=== PATIENT | female | born 1975 | race Caucasian/White ===

== ENCOUNTER 2017-11-22 20:17 | Emergency (ER) | payer SELFPAY ==
--- NOTE | 2017-11-22 21:47 | RAD REPORT ---
EXAM DESCRIPTION: RAD - Wrist Left 3 View - 11/22/2017 9:37 pm CLINICAL HISTORY: PAIN Fall COMPARISON: No comparisons FINDINGS: Small avulsion fracture of the triquetrum is suspected with adjacent moderate soft tissue swelling. No additional fracture or dislocation seen.
--- NOTE | 2017-11-22 22:16 | EDPHYS ---
Physician Documentation [facility] Name: Paz Ontiveros Age: 42 yrs Sex: Female : 1975 Arrival Date: 11/22/2017 Time: 20:19 Bed 12 Private MD: ED Physician Will Guillory HPI: 11/22 22:05 This 42 yrs old Female presents to ER via Ambulatory with complaints of Wrist jr8 Injury. 22:05 The patient or guardian reports decreased range of motion, pain, swelling, tenderness. jr8 The complaints affect the left wrist diffusely. Context: The problem was sustained outdoors, resulted from a fall. Onset: The symptoms/episode began/occurred acutely, today. Modifying factors: The symptoms are alleviated by nothing, the symptoms are aggravated by movement. Associated signs and symptoms: The patient has no apparent associated signs or symptoms. The patient has not experienced similar symptoms in the past. The patient has not recently seen a physician. 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 - Social history:: Smoking status: Patient uses tobacco products, smokes one pack cigarettes per day. - Ebola Screening: : No symptoms or risks identified at this time. ROS: 22:05 Eyes: Negative for injury, pain, redness, and discharge, ENT: Negative for injury, jr8 pain, and discharge, Neck: Negative for injury, pain, and swelling, Cardiovascular: Negative for chest pain, palpitations, and edema, Respiratory: Negative for shortness of breath, cough, wheezing, and pleuritic chest pain, Abdomen/GI: Negative for abdominal pain, nausea, vomiting, diarrhea, and constipation, Back: Negative for injury and pain, Skin: Negative for injury, rash, and discoloration, Neuro: Negative for headache, weakness, numbness, tingling, and seizure. 22:05 MS/extremity: Positive for decreased range of motion, pain, swelling, tenderness, of the left wrist. Exam: 22:05 Cardiovascular: Regular rate and rhythm with a normal S1 and S2. No gallops, murmurs, jr8 or rubs. Normal PMI, no JVD. No pulse deficits. Respiratory: Lungs have equal breath sounds bilaterally, clear to auscultation and percussion. No rales, rhonchi or wheezes noted. No increased work of breathing, no retractions or nasal flaring. Skin: Warm, dry with normal turgor. Normal color with no rashes, no lesions, and no evidence of cellulitis. Neuro: Awake and alert, GCS 15, oriented to person, place, time, and situation. Cranial nerves II-XII grossly intact. Motor strength 5/5 in all extremities. Sensory grossly intact. Cerebellar exam normal. Normal gait. 22:05 Musculoskeletal/extremity: Extremities: grossly normal except: noted in the left wrist : decreased ROM, pain, swelling, tenderness, Pain to dorsal left wrist and ventral left wrist over pisiform region, ROM: limited active range of motion, limited passive range of motion, limited active range of motion due to pain, limited passive range of motion due to pain, Circulation is intact in all extremities. Sensation intact. Vital Signs: 20:50 BP 102 / 75; Pulse 85; Resp 16; Temp 98.2(TE); Pulse Ox 99% on R/A; Weight 41.73 kg lk1 (R); Height 5 ft. 0 in. (152.40 cm) (R); Pain 8/10; 22:45 BP 106 / 53; Pulse 78; Resp 18; Pulse Ox 98% on R/A; Pain 7/10; fu 20:50 Body Mass Index 17.97 (41.73 kg, 152.40 cm) lk1 Procedures: 22:14 Splinting: Splint applied to left wrist using Orthoglass splint, applied by tech. jr8 Examined by me, post splint application: neurovascular intact, 2+ distal pulses palpable, brisk capillary refill noted. MDM: 21:09 Patient medically screened. jr8 22:05 Data reviewed: vital signs, nurses notes, radiologic studies, plain films, and as a jr8 result, I will discharge patient. Data interpreted: Pulse oximetry: on room air is 99 %. Interpretation: normal. Counseling: I had a detailed discussion with the patient and/or guardian regarding: the historical points, exam findings, and any diagnostic results supporting the discharge/admit diagnosis, radiology results, the need for outpatient follow up, a orthopedic surgeon, to return to the emergency department if symptoms worsen or persist or if there are any questions or concerns that arise at home. 11/22 21:17 Order name: KACEY Wrist LEFT 3 view; Complete Time: 21:48 jr8 Administered Medications: 22:50 Drug: morphine 4 mg Route: IM; Site: right deltoid; fu 22:50 Drug: Zofran 4 mg Route: PO; fu Disposition: 11/23 08:07 Co-signature as Attending Physician, Will Guillory MD I agree with the assessment and wa plan of care. Disposition: 11/22/17 22:15 Discharged to Home. Impression: Fracture of triquetrum [cuneiform] bone of wrist. - Condition is Stable. - Discharge Instructions: Wrist Fracture. - Prescriptions for pentazocine- naloxone 50-0.5 mg Oral tablet - take 2 tablet by ORAL route every 3-4 hours not to exceed 12 tablets in 24 hours.; 20 tablet. - Medication Reconciliation Form, Thank You Letter, Antibiotic Education, Prescription Opioid Use form. - Follow up: Jacinto Jeffery MD; When: 2 - 3 days; Reason: Recheck today's complaints, Continuance of care, Re-evaluation by your physician. - Problem is new. - Symptoms have improved. Signatures: Dispatcher [employer] EDMN Mitesh Pearson PA PA jr8 Court Jarquin RN RN lk1 Will Guillory MD MD hi Dawit Lindsey RN RN fu Corrections: (The following items were deleted from the chart) 11/22 21:28 20:53 Forearm Left+RAD.RAD.BRZ ordered. [facility] 23:32 22:15 11/22/2017 22:15 Discharged to Home. Impression: Fracture of triquetrum fu [cuneiform] bone of wrist. Condition is Stable. Discharge Instructions: Wrist Fracture. Prescriptions for pentazocine-naloxone 50-0.5 mg Oral tablet - take 2 tablet by ORAL route every 3-4 hours not to exceed 12 tablets in 24 hours.; 20 tablet. and Forms are Medication Reconciliation Form, Thank You Letter, Antibiotic Education, Prescription Opioid Use. Follow up: Jacinto Jeffery; When: 2 - 3 days; Reason: Recheck today's complaints, Continuance of care, Re-evaluation by your physician. Problem is new. Symptoms have improved. jr8
--- NOTE | 2017-11-22 22:16 | ER ---
Nurse's Notes [facility] Name: Paz Ontiveros Age: 42 yrs Sex: Female : 1975 Arrival Date: 11/22/2017 Time: 20:19 Bed 12 Private MD: Diagnosis: Fracture of triquetrum [cuneiform] bone of wrist Presentation: 11/22 20:47 Presenting complaint: Patient states: "I was cleaning at work last night and I fell and lk1 caught myself on my left wrist. I am having a lot of throbbing.". Transition of care: patient was not received from another setting of care. Onset of symptoms was November 21, 2017 at 21:00. Risk Assessment: Do you want to hurt yourself or someone else? Patient reports no desire to harm self or others. Initial Sepsis Screen: Does the patient meet any 2 criteria? No. Patient's initial sepsis screen is negative. Does the patient have a suspected source of infection? No. Patient's initial sepsis screen is negative. Care prior to arrival: None. 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 - Social history:: Smoking status: Patient uses tobacco products, smokes one pack cigarettes per day. - Ebola Screening: : No symptoms or risks identified at this time. Assessment: 22:15 General: Appears in no apparent distress. Behavior is calm, cooperative. Pain: fu Complains of pain in left arm Pain does not radiate. Musculoskeletal: Range of motion: limited in left wrist. Vital Signs: 20:50 BP 102 / 75; Pulse 85; Resp 16; Temp 98.2(TE); Pulse Ox 99% on R/A; Weight 41.73 kg lk1 (R); Height 5 ft. 0 in. (152.40 cm) (R); Pain 8/10; 22:45 BP 106 / 53; Pulse 78; Resp 18; Pulse Ox 98% on R/A; Pain 7/10; fu 20:50 Body Mass Index 17.97 (41.73 kg, 152.40 cm) lk1 ED Course: 20:19 Patient arrived in ED. am2 20:49 Triage completed. lk1 20:52 Arm band placed on right wrist. lk1 21:09 Mitesh Pearson PA is PHCP. jr8 21:09 Will Guillory MD is Attending Physician. jr8 21:28 X-ray completed. Portable x-ray completed in exam room. Patient tolerated procedure bb2 well. 21:29 XRAY Wrist LEFT 3 view In Process Unspecified. EDMS 21:34 Dawit Lindsey, RN is Primary Nurse. fu 22:15 Jacinto Jeffery MD is Referral Physician. jr8 22:16 Orthoglass splint: Volar splint applied on left arm. ks6 22:16 Used 3 inch orthoglass and lurdes wrap x2. CMS intact. ks6 22:45 Patient did not have IV access during this emergency room visit. fu 22:50 Patient has correct armband on for positive identification. fu Administered Medications: 22:50 Drug: morphine 4 mg Route: IM; Site: right deltoid; fu 22:50 Drug: Zofran 4 mg Route: PO; fu Outcome: 22:15 Discharge ordered by . jr8 23:00 Discharged to home ambulatory, with significant other. fu 23:00 Condition: improved 23:00 Discharge instructions given to patient, Instructed on discharge instructions, follow up and referral plans. Demonstrated understanding of Prescriptions given X 1. 23:32 Patient left the ED. fu Signatures: Dispatcher [employer] EDNH Mitesh Pearson PA PA jr8 Court Jarquin RN RN lk1 Oly Alonso am2 Dawit Lindsey, RN RN Vicki Young 2 Hamzah Oconnor ks6 Corrections: (The following items were deleted from the chart) 22:17 22:16 Used 3 inch orthoglass and lurdes wrap x2 ks6 ks6
[2017-11-22] MEDS ORDERED: MORPHINE 4 MG/ML SYR ONE (22:49)
[2017-11-22] MEDS ORDERED: ONDANSETRON 4 MG (ODT) TAB ONE (22:49)
[2017-11-23 00:29] VITALS: BP 106/53; O2SAT 98
[2017-11-23 00:30] VITALS: TEMP 98.2
== END 2017-11-22 23:32 | disposition home or self-care (01) ==
LOC: ER 20:17
PROC: 2W3DX1Z Immobilization of Left Lower Arm using Splint (ICD-10-PCS; principal; 2017-11-22)
DX: S62.112A Displaced fracture of triquetrum [cuneiform] bone, left wrist, initial encounter for closed fracture (principal); Z88.5 Allergy status to narcotic agent; F17.210 Nicotine dependence, cigarettes, uncomplicated; W19.XXXA Unspecified fall, initial encounter; Y93.9 Activity, unspecified; Y92.89 Other specified places as the place of occurrence of the external cause
CPT/HCPCS: 96372; 99284

== ENCOUNTER 2017-11-23 10:55 | Emergency (ER) | payer SELFPAY ==
--- NOTE | 2017-11-23 11:24 | ER ---
Nurse's Notes [facility] Name: Paz Ontiveros Age: 42 yrs Sex: Female : 1975 Arrival Date: 11/23/2017 Time: 10:58 Bed 20 Private MD: Out, [facility] Diagnosis: Encounter for screening, unspecified Presentation: 11/23 11:08 Presenting complaint: Patient states: diagnosed in ER yesterday evening with wrist ss fracture. Pt is back today because the pain is worse and she feels as if it swollen. Pt did not fill her prescription from yesterday. Transition of care: patient was not received from another setting of care. Onset of symptoms was November 22, 2017. Risk Assessment: Do you want to hurt yourself or someone else? Patient reports no desire to harm self or others. Initial Sepsis Screen: Does the patient meet any 2 criteria? No. Patient's initial sepsis screen is negative. Does the patient have a suspected source of infection? No. Patient's initial sepsis screen is negative. Care prior to arrival: None. 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 - Social history:: Smoking status: Patient uses tobacco products, smokes one pack cigarettes per day. - Ebola Screening: : Patient denies exposure to infectious person Patient denies travel to an Ebola-affected area in the 21 days before illness onset. Screenin:44 Abuse screen: Denies threats or abuse. Nutritional screening: No deficits noted. em Tuberculosis screening: No symptoms or risk factors identified. Fall Risk None identified. Assessment: 11:30 General: Appears uncomfortable, Behavior is cooperative, anxious. Pain: Complains of em pain in left arm Quality of pain is described as. Neuro: Level of Consciousness is awake, alert, obeys commands, Oriented to person, place, time, situation. Cardiovascular: Capillary refill < 3 seconds Patient's skin is warm and dry. Respiratory: Airway is patent Respiratory effort is even, unlabored, Respiratory pattern is regular, symmetrical. GI: Abdomen is flat. : No signs and/or symptoms were reported regarding the genitourinary system. EENT: No signs and/or symptoms were reported regarding the EENT system. Derm: Skin is intact. Musculoskeletal: Circulation, motion, and sensation intact. Capillary refill < 3 seconds, Range of motion: limited in left wrist splint noted to the left arm Reports "feels swollen" pain which is 8/10. 11:40 Reassessment: pt up for discharge, awaiting shot time per hospital policy. em Vital Signs: 11:10 BP 110 / 57; Pulse 84; Resp 16; Temp 98.2(TE); Pulse Ox 99% on R/A; Weight 41.73 kg; ss Height 5 ft. 0 in. (152.40 cm); Pain 8/10; 11:59 BP 104 / 57; Pulse 61; Resp 18; Pulse Ox 99% on R/A; Pain 7/10; em 11:10 Body Mass Index 17.97 (41.73 kg, 152.40 cm) ss ED Course: 10:58 Patient arrived in ED. sb2 10:58 Out, Town is Private Physician. sb2 11:09 Triage completed. ss 11:10 Arm band placed on right wrist. ss 11:11 Cecilia Thibodeaux FNP-C is [facility]. snw 11:11 Yoan Briceño MD is Attending Physician. snw 11:21 Karl Mcleod LVN is Primary Nurse. em 11:30 Patient has correct armband on for positive identification. Bed in low position. Call em light in reach. Side rails up X2. Adult w/ patient. 11:57 No provider procedures requiring assistance completed. Patient did not have IV access em during this emergency room visit. Administered Medications: 11:40 Drug: TORadol 60 mg {Note: pt request to be given 2 shots, 30 mg administered in left em deltoid; 30 mg administered in right deltoid.} Route: IM; Site: left deltoid; 11:59 Follow up: Response: No adverse reaction em Outcome: 11:23 Discharge ordered by . snw 11:58 Discharged to home ambulatory. em 11:58 Condition: good 11:58 Discharge instructions given to patient, family, Instructed on discharge instructions, follow up and referral plans. Demonstrated understanding of instructions, follow-up care. 12:00 Patient left the ED. em Signatures: Cecilia Thibodeaux, PSYCHOLOGY INTERN-C PSYCHOLOGY INTERN-Csnw Karl Mcleod, TENNIS DESK TEAM MEMBER TENNIS DESK TEAM MEMBER em Ayse Lorenz, NUPUR RN Coco Mallory sb2
--- NOTE | 2017-11-23 11:24 | EDPHYS ---
Physician Documentation [facility] Name: Paz Ontiveros Age: 42 yrs Sex: Female : 1975 Arrival Date: 11/23/2017 Time: 10:58 Bed 20 Private MD: Out, [facility] ED Physician Yoan Briceño HPI: 11/23 11:27 This 42 yrs old Female presents to ER via Ambulatory with complaints of Pain snw And Swelling From Broken Wrist. 11:27 Onset: The symptoms/episode began/occurred and became persistent. Associated signs and snw symptoms: Pertinent positives: pain and swelling to wrist. dx with fx last pm. Pt has not gotten prescriptions written last pm. . It is unknown whether or not the patient has had similar symptoms in the past. The patient has been recently seen by a physician: The patient has been recently seen at the [facility] Emergency Department, yesterday, for similar complaints X-rays were performed, was given a prescription for pain medications. DIRECTOR ON AIR: 11:56 LMP N/A - control method em Historical: - Allergies: 11:10 Codeine; ss - Home Meds: 11:10 xanax [Active]; ambien [Active]; ss - PMHx: 11:10 Anxiety; insomonia; Panic Attacks; ss - PSHx: 11:10 Tonsillectomy; Adenoids; Tubal ligation; ss - Immunization history:: Adult Immunizations up to date. - Social history:: Smoking status: Patient uses tobacco products, smokes one pack cigarettes per day. - Ebola Screening: : Patient denies exposure to infectious person Patient denies travel to an Ebola-affected area in the 21 days before illness onset. ROS: 11:27 Constitutional: Negative for fever, chills, and weight loss, Eyes: Negative for injury, snw pain, redness, and discharge, ENT: Negative for injury, pain, and discharge, Neck: Negative for injury, pain, and swelling, Cardiovascular: Negative for chest pain, palpitations, and edema, Respiratory: Negative for shortness of breath, cough, wheezing, and pleuritic chest pain, Abdomen/GI: Negative for abdominal pain, nausea, vomiting, diarrhea, and constipation, Back: Negative for injury and pain, : Negative for injury, bleeding, discharge, and swelling, Skin: Negative for injury, rash, and discoloration, Neuro: Negative for headache, weakness, numbness, tingling, and seizure. 11:27 MS/extremity: Positive for injury or acute deformity, pain, swelling, of the left upper extremity below the elbow. Exam: 11:25 Constitutional: This is a well developed, well nourished patient who is awake, alert, snw and in no acute distress. Head/Face: Normocephalic, atraumatic. Eyes: Pupils equal round and reactive to light, extra-ocular motions intact. Lids and lashes normal. Conjunctiva and sclera are non-icteric and not injected. Cornea within normal limits. Periorbital areas with no swelling, redness, or edema. ENT: Nares patent. No nasal discharge, no septal abnormalities noted. Tympanic membranes are normal and external auditory canals are clear. Oropharynx with no redness, swelling, or masses, exudates, or evidence of obstruction, uvula midline. Mucous membranes moist. Neck: Trachea midline, no thyromegaly or masses palpated, and no cervical lymphadenopathy. Supple, full range of motion without nuchal rigidity, or vertebral point tenderness. No Meningismus. Chest/axilla: Normal chest wall appearance and motion. Nontender with no deformity. No lesions are appreciated. Cardiovascular: Regular rate and rhythm with a normal S1 and S2. No gallops, murmurs, or rubs. Normal PMI, no JVD. No pulse deficits. Respiratory: Lungs have equal breath sounds bilaterally, clear to auscultation and percussion. No rales, rhonchi or wheezes noted. No increased work of breathing, no retractions or nasal flaring. Abdomen/GI: Soft, non-tender, with normal bowel sounds. No distension or tympany. No guarding or rebound. No evidence of tenderness throughout. Back: No spinal tenderness. No costovertebral tenderness. Full range of motion. Skin: Warm, dry with normal turgor. Normal color with no rashes, no lesions, and no evidence of cellulitis. Neuro: Awake and alert, GCS 15, oriented to person, place, time, and situation. Cranial nerves II-XII grossly intact. Motor strength 5/5 in all extremities. Sensory grossly intact. Cerebellar exam normal. Normal gait. Psych: Awake, alert, with orientation to person, place and time. Behavior, mood, and affect are within normal limits. 11:25 Musculoskeletal/extremity: Extremities: grossly normal except: noted in the left hand/wrist: swelling, tenderness, splint adjusted mildly and padded, full sensation and cap refill to fingers. Vital Signs: 11:10 BP 110 / 57; Pulse 84; Resp 16; Temp 98.2(TE); Pulse Ox 99% on R/A; Weight 41.73 kg; ss Height 5 ft. 0 in. (152.40 cm); Pain 8/10; 11:59 BP 104 / 57; Pulse 61; Resp 18; Pulse Ox 99% on R/A; Pain 7/10; em 11:10 Body Mass Index 17.97 (41.73 kg, 152.40 cm) ss MDM: 11:23 Patient medically screened. snw 11:29 Data reviewed: vital signs, nurses notes. Data interpreted: Pulse oximetry: on room air snw is 99 %. Interpretation: normal. Counseling: I had a detailed discussion with the patient and/or guardian regarding: the historical points, exam findings, and any diagnostic results supporting the discharge/admit diagnosis, the need for outpatient follow up, for definitive care, to return to the emergency department if symptoms worsen or persist or if there are any questions or concerns that arise at home. 11/23 11:16 Order name: Cammie; Complete Time: 11:59 snw Administered Medications: 11:40 Drug: TORadol 60 mg {Note: pt request to be given 2 shots, 30 mg administered in left em deltoid; 30 mg administered in right deltoid.} Route: IM; Site: left deltoid; 11:59 Follow up: Response: No adverse reaction em Disposition: 18:17 Co-signature as Attending Physician, Yoan Briceño MD. rn Disposition: 11/23/17 11:23 Discharged to Home. Impression: Encounter for screening, unspecified. - Condition is Stable. - Discharge Instructions: Elastic Bandage and RICE, Cast or Splint Care, Cryotherapy. - Medication Reconciliation Form, Thank You Letter, Antibiotic Education, Prescription Opioid Use form. - Follow up: Private Physician; Reason: Recheck today's complaints, Continuance of care, Re-evaluation by your physician. Signatures: Cecilia Thibodeaux, HIGH RISK CASE MANAGER-C HIGH RISK CASE MANAGER-Csnw Karl Mcleod, PACKAGE DRIER PACKAGE DRIER em Yoan Briceño MD MD rn Ayse Lorenz RN RN ss Corrections: (The following items were deleted from the chart) 11:24 11:11/23/2017 11:23 Discharged to Home. Impression: Encounter for screening, snw unspecified. Condition is Stable. Forms are Medication Reconciliation Form, Thank You Letter, Antibiotic Education, Prescription Opioid Use. snw 12:00 11:24 11/23/2017 11:23 Discharged to Home. Impression: Encounter for screening, em unspecified. Condition is Stable. Forms are Medication Reconciliation Form, Thank You Letter, Antibiotic Education, Prescription Opioid Use. Follow up: Private Physician; Reason: Recheck today's complaints, Continuance of care, Re-evaluation by your physician. snw
[2017-11-23] MEDS ORDERED: KETOROLAC 30 MG/ML INJ ONE (11:34)
[2017-11-23 12:04] VITALS: TEMP 98.2; O2SAT 99
[2017-11-23 12:05] VITALS: BP 104/57
== END 2017-11-23 12:00 | disposition home or self-care (01) ==
LOC: ER 10:55
DX: S62.102D Fracture of unspecified carpal bone, left wrist, subsequent encounter for fracture with routine healing (principal); F17.210 Nicotine dependence, cigarettes, uncomplicated; X58.XXXD Exposure to other specified factors, subsequent encounter; Z88.6 Allergy status to analgesic agent
CPT/HCPCS: 96372; 99283

== ENCOUNTER 2018-12-06 12:51 | Emergency (ER) | payer SELFPAY ==
--- OUTSIDE RECORDS SUMMARY | 2018-12-06 12:55 | XMS REPORT | Summary of Care ---
:1975 Author Organization [facility] [place] Address [address] [place] [address]- Encounter [facility] Carontr_felipe(FIN) [id number] Date(s): 04/26/17 - 04/27/17 [facility] [place] [address] [place] [phone] Vital Signs No data available for this section Problem List Condition Effective Dates Status Health Status Informant Insomnia1 Active Mixed anxiety and depressive disorder2 Active 1Data migrated from [employer] on 10/24/14.2Data migrated from [employer] on 10/24/14. Allergies, Adverse Reactions, Alerts Substance Reaction Severity Status codeine1 Active 1Data migrated from [employer] on 07/28/15. Originally documented as CODEINE. itchy ,insomnia,nausea Medications ALPRAZOLam 1 mg oral tablet 1 mg=1 tab, PO, BID, prn anxiety, # 60 tab, 0 Refill(s), called to pharmacy Start Date: 04/26/17 Stop Date: 04/26/18 Status: OrderedAmbien 10 mg oral tablet 10 mg=1 tab, PO, Bedtime, PRN for sleep, # 30 tab, 0 Refill(s), called to pharmacy Start Date: 04/26/17 Stop Date: 04/26/18 Status: Ordered Results No data available for this section Immunizations No data available for this section Procedures Procedure Date Related Diagnosis Body Site Bilateral tubal ligation IVF Open reversal of tubal ligation Social History Social History Type Response Smoking Status Current every day smoker; Type: Cigarettes; Exposure to Tobacco Smoke None; Cigarette Smoking Last 365 Days Yes; Reg Smoking Cessation Counseling Yes Assessment and Plan No data available for this section
--- OUTSIDE RECORDS SUMMARY | 2018-12-06 12:55 | XMS REPORT | Continuity of Care Document ---
:1975 Author Organization [employer] Care Team Providers Name Role Phone [employer] Unavailable Unavailable Problems Problem Status Onset Classification Date Comments Source Date Reported Insomnia1 Active Problem 09/08/2018 Data migrated [facility] from [employer] on 10/24/14. Mixed anxiety Active Problem 09/08/2018 Data migrated [facility] and depressive from [employer] disorder2 [employer] on 10/24/14. Medications Medication Details Route Status Patient Ordering Order Source Instructions Provider Date Alprazolam 1 1 mg=1 tab, Active 09/05/19 [facility] MG Oral PO, BID, prn 19 Medical Tablet anxiety, # Group 60 tab, 1 Refill(s), called to pharmacy Zolpidem 10 mg=1 tab, Active 02/20/20 MH tartrate 10 PO, Bedtime, 18 Medical MG Oral PRN for Group Tablet sleep, # 30 [Ambien] tab, 5 Refill(s) Alprazolam 1 1 mg=1 tab, No Longer 02/20/20 [facility] MG Oral PO, BID, prn Active 18 Medical Tablet anxiety, # Group 60 tab, 5 Refill(s) Alprazolam 1 1 mg=1 tab, Active 12/01/19 [facility] MG Oral PO, BID, prn 18 Medical Tablet anxiety, # Group 60 tab, 3 Refill(s), called to pharmacy Zolpidem 10 mg=1 tab, Active 12/01/19 MH tartrate 10 PO, Bedtime, 18 Medical MG Oral PRN for Group Tablet sleep, # 30 [Ambien] tab, 3 Refill(s), called to pharmacy Zolpidem 10 mg=1 tab, Active 07/09/19 MH tartrate 10 PO, Bedtime, 18 Medical MG Oral PRN for Group Tablet sleep, # 30 [Ambien] tab, 3 Refill(s) Alprazolam 1 1 mg=1 tab, Active 07/09/19 [facility] MG Oral PO, BID, prn 18 Medical Tablet anxiety, # Group 60 tab, 3 Refill(s) duloxetine 30 See Active 07/09/19 MH MG Enteric Instructions 18 Medical Coated , 1 Capsule Group Capsule daily 7 [Cymbalta] days, then 2 capsule daily, # 60 cap, 1 Refill(s), Pharmacy: [facility] [id number] Alprazolam 1 1 mg=1 tab, No Longer 06/20/19 [facility] MG Oral PO, BID, prn Active 18 Medical Tablet anxiety, # Group 60 tab, 0 Refill(s), called to pharmacy Zolpidem 10 mg=1 tab, No Longer 06/20/19 MH tartrate 10 PO, Bedtime, Active 18 Medical MG Oral PRN for Group Tablet sleep, # 30 [Ambien] tab, 0 Refill(s), called to pharmacy Zolpidem 10 mg=1 tab, Active 04/26/20 MH tartrate 10 PO, Bedtime, 17 Medical MG Oral PRN for Group Tablet sleep, # 30 [Ambien] tab, 0 Refill(s), called to pharmacy Alprazolam 1 1 mg=1 tab, Active 04/26/20 [facility] MG Oral PO, BID, prn 17 Medical Tablet anxiety, # Group 60 tab, 0 Refill(s), called to pharmacy Allergies, Adverse Reactions, Alerts Substance Category Reaction Severity Reaction Status Date Comments Source type Reported codeine<sup Assertion Drug Active Data MH >1</sup> allergy migrated Medical from [facility] on 07/28/15. Originally documented as CODEINE. itchy ,insomnia,n ausea Immunizations No Data Provided for This Section Results No Data Provided for This Section Pathology Reports No Data Provided for This Section Diagnostic Reports No Data Provided for This Section Consultation Notes No Data Provided for This Section Discharge Summaries No Data Provided for This Section History and Physicals No Data Provided for This Section Vital Signs Vital Sign Value Date Comments Source BMI Calculated 18.16 02/19/2018 Medical Group Weight 42.182 02/19/2018 [facility] Group Systolic (mm Hg) 108 02/19/2018 Medical Group Diastolic (mm Hg) 71 02/19/2018 [facility] Group Height 152.4 cm 02/19/2018 Medical Group Heart Rate 85 02/19/2018 [facility] Group Temperature Oral (F) 98.0 F 02/19/2018 Medical Group Height 152.4 cm 11/07/2017 Medical Group Weight 42.182 11/07/2017 Medical Group BMI Calculated 18.16 11/07/2017 Medical Group Heart Rate 81 11/07/2017 Medical Group Temperature Oral (F) 98.2 F 11/07/2017 Medical Group Systolic (mm Hg) 96 11/07/2017 Medical Group Diastolic (mm Hg) 63 11/07/2017 Medical Group Weight 44.091 07/09/2017 Medical Group BMI Calculated 18.98 07/09/2017 Medical Group Height 152.4 cm 07/09/2017 Medical Group Systolic (mm Hg) 100 07/09/2017 Medical Group Diastolic (mm Hg) 67 07/09/2017 Medical Group Heart Rate 84 07/09/2017 Medical Group Temperature Oral (F) 97.8 F 07/09/2017 Medical Group Encounters Location Location Encounter Encounter Reason Attending ADM DC Status Source Details Type Number For Provider Date Date Visit Outpatient [id number] MARC 08/04 [facility] Outpatient [id number] MARC 02/07 [facility] [place] Outpatient [id number] MARC 03/21 [facility] [place] Outpatient [id number] MARC 06/29 [facility] Outpatient [id number] MARC 08/02 [facility] Phone [id number] 04/26 04/28 Primary Message /2016 [facility] [place] [facility] Phone [phone] 06/20 06/22 Primary Message /2017 [facility] [place] Outpatient [id number] MARC 07/09 [facility] [id number] Marc 07/09 07/10 Primary [place] /2017 [facility] [place] [facility] Phone [phone] 07/09 07/11 Primary Message /2017 [facility] [place] Outpatient [id number] MARC 11/07 [facility] [id number] Marc 11/07 11/08 Primary [place] /2017 [facility] [place] [facility] Phone [phone] 11/30 12/02 Primary Message /2017 [facility] [place] Outpatient [id number] [facility]24 [id number] 12/24 Primary [facility] [place] Outpatient [id number] 02/19 Active [facility] [id number] 02/19 [facility] [place] [facility] [phone] 09/04 09/06 Primary Message /2018 [facility] [place] Procedures Procedure Code Date Perfomer Comments Source Bilateral tubal 046947239 Medical ligation Group IVF [id number] Medical Group Open reversal of [id number] Medical tubal ligation Group Assessment and Plan No Data Provided for This Section Plan of Care No Data Provided for This Section Social History Social History Date Source Social History TypeResponse 02/19/2018 Medical Group Smoking Status Current every day smoker; Type: Cigarettes; Exposure to Tobacco Smoke None; Cigarette Smoking Last 365 Days Yes; Reg Smoking Cessation Counseling Yes entered on: 02/19/18 Family History No Data Provided for This Section Advance Directives No Data Provided for This Section Functional Status No Data Provided for This Section
--- OUTSIDE RECORDS SUMMARY | 2018-12-06 12:56 | XMS REPORT | Summary of Care ---
:1975 Author Organization [facility] [place] Address [address] [place] [address]- Encounter HQ Carontr_felipe(FIN) [id number] Date(s): 06/20/17 - 06/21/17 [facility] [place] [address] [place] [phone] Vital Signs No data available for this section Problem List Condition Effective Dates Status Health Status Informant Insomnia1 Active Mixed anxiety and depressive disorder2 Active 1Data migrated from [employer] on 10/24/14.2Data migrated from [employer] on 10/24/14. Allergies, Adverse Reactions, Alerts Substance Reaction Severity Status codeine1 Active 1Data migrated from [employer] on 07/28/15. Originally documented as CODEINE. itchy ,insomnia,nausea Medications ALPRAZOLam 1 mg oral tablet 1 mg=1 tab, PO, BID, prn anxiety, # 60 tab, 0 Refill(s), called to pharmacy Start Date: 06/20/17 Stop Date: 07/09/17 Status: DiscontinuedAmbien 10 mg oral tablet 10 mg=1 tab, PO, Bedtime, PRN for sleep, # 30 tab, 0 Refill(s), called to pharmacy Start Date: 06/20/17 Stop Date: 07/09/17 Status: Discontinued Results No data available for this section Immunizations No data available for this section Procedures Procedure Date Related Diagnosis Body Site Status Bilateral tubal ligation Completed IVF Completed Open reversal of tubal ligation Completed Social History Social History Type Response Smoking Status Current every day smoker; Type: Cigarettes; Exposure to Tobacco Smoke None; Cigarette Smoking Last 365 Days Yes; Reg Smoking Cessation Counseling Yes entered on: 07/09/17 Assessment and Plan No data available for this section
--- OUTSIDE RECORDS SUMMARY | 2018-12-06 12:56 | XMS REPORT | Summary of Care ---
:1975 Author Organization [facility] [place] Address [address] [place] [address] Encounter HQ Abdirizak(FIN) [phone] Date(s): 02/19/18 - 02/19/18 [facility] [place] [address] [place] [address]- [phone] Discharge Disposition: Home or Self Care Attending Physician: Marc Joy MD Vital Signs Most recent to oldest [Reference Range]: 1 Height 152.4 cm (02/19/18 2:06 PM) Temperature Oral [96.4-99.1 DegF] 98.0 DegF (02/19/18 2:06 PM) Blood Pressure [90-140/60-90 mmHg] 108/71 mmHg (02/19/18 2:06 PM) Peripheral Pulse Rate [60-100 bpm] 85 bpm (02/19/18 2:06 PM) Weight 42.182 kg (02/19/18 2:06 PM) Body Mass Index 18.16 m2 (02/19/18 2:06 PM) Problem List Condition Effective Dates Status Health Status Informant Insomnia1 Active Mixed anxiety and depressive disorder2 Active 1Data migrated from [employer] on 10/24/14.2Data migrated from [employer] on 10/24/14. Allergies, Adverse Reactions, Alerts Substance Reaction Severity Status codeine1 Active 1Data migrated from [employer] on 07/28/15. Originally documented as CODEINE. itchy ,insomnia,nausea Medications ALPRAZOLam 1 mg oral tablet 1 mg=1 tab, PO, BID, prn anxiety, # 60 tab, 5 Refill(s) Start Date: 02/19/18 Stop Date: 09/04/18 Status: CompletedAmbien 10 mg oral tablet 10 mg=1 tab, PO, Bedtime, PRN for sleep, # 30 tab, 5 Refill(s) Start Date: 02/19/18 Status: Ordered Results No data available for [...] Smoking Cessation Counseling Yes entered on: 02/19/18 Assessment and Plan No data available for this section
--- OUTSIDE RECORDS SUMMARY | 2018-12-06 12:56 | XMS REPORT | Summary of Care ---
:1975 Author Organization [facility] [place] [facility] [place] Address [address] [place], [place] [address]- Encounter HQ Abdirizak(FIN) [phone] Date(s): 07/09/17 - 07/09/17 [facility] [place] [address] [place] [phone] Discharge Disposition: Home or Self Care Attending Physician: Marc Joy MD Vital Signs Most recent to oldest [Reference Range]: 1 Height 152.4 cm (07/09/17 1:58 PM) Temperature Oral [96.4-99.1 DegF] 97.8 DegF (07/09/17 1:58 PM) Blood Pressure [90-140/60-90 mmHg] 100/67 mmHg (07/09/17 1:58 PM) Peripheral Pulse Rate [60-100 bpm] 84 bpm (07/09/17 1:58 PM) Weight 44.091 kg (07/09/17 1:58 PM) Body Mass Index 18.98 m2 (07/09/17 1:58 PM) Problem List Condition Effective Dates Status Health Status Informant Insomnia1 Active Mixed anxiety and depressive disorder2 Active 1Data migrated from [employer] on 10/24/14.2Data migrated from [employer] on 10/24/14. Allergies, Adverse Reactions, Alerts Substance Reaction Severity Status codeine1 Active 1Data migrated from [employer] on 07/28/15. Originally documented as CODEINE. itchy ,insomnia,nausea Medications ALPRAZOLam 1 mg oral tablet 1 mg=1 tab, PO, BID, prn anxiety, # 60 tab, 3 Refill(s) Start Date: 07/09/17 Status: OrderedAmbien 10 mg oral tablet 10 mg=1 tab, PO, Bedtime, PRN for sleep, # 30 tab, 3 Refill(s) Start Date: 07/09/17 Status: OrderedCymbalta 30 mg oral delayed release capsule See Instructions, 1 Capsule daily 7 days, then 2 capsule daily, # 60 cap, 1 Refill(s), Pharmacy: [facility] [id number] Start Date: 07/09/17 Status: Ordered Results No data available for [...]
--- OUTSIDE RECORDS SUMMARY | 2018-12-06 12:56 | XMS REPORT | Summary of Care ---
:1975 Author Organization [facility] Primary [facility] [place] Address [address] [place] [address]- Encounter HQ Encntr_alibert(FIN) [phone] Date(s): 09/04/18 - 09/05/18 [facility] [place] [address] [place] [address] Vital Signs No data available for this section Problem List Condition Effective Dates Status Health Status Informant Insomnia1 Active Mixed anxiety and depressive disorder2 Active 1Data migrated from [employer] on 10/24/14.2Data migrated from [employer] on 10/24/14. Allergies, Adverse Reactions, Alerts Substance Reaction Severity Status codeine1 Active 1Data migrated from [employer] on 07/28/15. Originally documented as CODEINE. itchy ,insomnia,nausea Medications ALPRAZOLam 1 mg oral tablet 1 mg=1 tab, PO, BID, prn anxiety, # 60 tab, 1 Refill(s), called to pharmacy Start Date: 09/04/18 Status: Ordered Results No data available for [...]
--- OUTSIDE RECORDS SUMMARY | 2018-12-06 12:56 | XMS REPORT | Summary of Care ---
:1975 Author Organization [facility] [place] Address [address] [place], [place] [address]- Encounter HQ Encntr_alibert(FIN) [phone] Date(s): 07/09/17 - 07/10/17 [facility] [place] [address] [place], [place] [phone] Vital Signs No data available for this section Problem List Condition Effective Dates Status Health Status Informant Insomnia1 Active Mixed anxiety and depressive disorder2 Active 1Data migrated from [employer] on 10/24/14.2Data migrated from [employer] on 10/24/14. Allergies, Adverse Reactions, Alerts Substance Reaction Severity Status codeine1 Active 1Data migrated from [employer] on 07/28/15. Originally documented as CODEINE. itchy ,insomnia,nausea Medications No data available for this section Results No data available for this section [...]
--- OUTSIDE RECORDS SUMMARY | 2018-12-06 12:56 | XMS REPORT | Summary of Care ---
:1975 Author Organization [facility] [place] Address [address] [place] [address]- Encounter HQ Encntr_alibert(FIN) [id number] Date(s): 11/30/17 - 12/01/17 [facility] [place] [address] [place] [address] [phone] Vital Signs No data available for this section Problem List Condition Effective Dates Status Health Status Informant Insomnia1 Active Mixed anxiety and depressive disorder2 Active 1Data migrated from [employer] on 10/24/14.2Data migrated from [employer] on 10/24/14. Allergies, Adverse Reactions, Alerts Substance Reaction Severity Status codeine1 Active 1Data migrated from [employer] on 07/28/15. Originally documented as CODEINE. itchy ,insomnia,nausea Medications ALPRAZOLam 1 mg oral tablet 1 mg=1 tab, PO, BID, prn anxiety, # 60 tab, 3 Refill(s), called to pharmacy Start Date: 11/30/17 Status: OrderedAmbien 10 mg oral tablet 10 mg=1 tab, PO, Bedtime, PRN for sleep, # 30 tab, 3 Refill(s), called to pharmacy Start Date: 11/30/17 Status: Ordered Results No data available for [...] Reg Smoking Cessation Counseling Yes entered on: 11/07/17 Assessment and Plan No data available for this section
--- OUTSIDE RECORDS SUMMARY | 2018-12-06 12:57 | XMS REPORT | Summary of Care ---
:1975 Author Organization [facility] [place] Address [address] [place] [address]- Encounter HQ Carontr_felipe(FIN) [id number] Date(s): 12/24/17 - 12/24/17 [facility] [place] [address] [place] [address] [phone] Attending Physician: Marc Joy MD Vital Signs No data available for this section Problem List Condition Effective Dates Status Health Status Informant Insomnia1 Active Mixed anxiety and depressive disorder2 Active 1Data migrated from [employer] on 10/24/14.2Data migrated from [employer] on 10/24/14. Allergies, Adverse Reactions, Alerts Substance Reaction Severity Status codeine1 Active 1Data migrated from [employer] on 07/28/15. Originally documented as CODEINE. itchy [...]
--- OUTSIDE RECORDS SUMMARY | 2018-12-06 12:57 | XMS REPORT | Summary of Care ---
:1975 Author Organization [facility] [place] Address [address] [place] [address]- Encounter HQ Carontr_felipe(FIN) [phone] Date(s): 12/24/17 - 12/24/17 [facility] [place] [address] [place] [address] [phone] Attending Physician: Marc Joy MD Vital Signs No data available for this section Problem List Condition Effective Dates Status Health Status Informant Insomnia1 Active Mixed anxiety and depressive disorder2 Active 1Data migrated from [employer] on 10/24/14.2Data migrated from [employer] on 10/24/14. Allergies, Adverse Reactions, Alerts Substance [...]
[2018-12-06 13:59] LABS: Urine Blood TRACE (NEG); Urine Glucose NEGATIVE (NEG); Urine Protein NEGATIVE (NEG); Urine pH 5.5 (5.0-7.0)
--- NOTE | 2018-12-06 14:57 | RAD REPORT ---
EXAM DESCRIPTION: CT - Stone Protocol - 12/06/2018 2:49 pm CLINICAL HISTORY: Flank pain. ABD PAIN COMPARISON: <Comparisons> TECHNIQUE: Axial images were obtained without oral or IV contrast. Lack of contrast limits solid org an and vascular assessment. The [id number] spans the entirety of the system partially obscuring uppermost abdomen and lung bases. Coronal reformatted images were obtained and reviewed. All CT scans are performed using dose optimization technique as appropriate and may include automated exposure control or mA/KV adjustment according to patient size. FINDINGS: The lower lung rainey are clear. Imaged portions of the liver and spleen show no suspicious findings on non-contrast imaging. The panc reas and adrenal glands are normal. No pathologic lymphadenopathy in the abdomen or pelvis. No urinary tract stones or obstructive uropathy. No bowel obstruction, free air, free fluid or abscess. Normal appendix noted. No significant bony abnormality. The uterus appears enlarged and likely contains several fibroids. IMPRESSION: Enlarged uterus with multiple fibroids suspected. Consider follow-up pelvic ultrasound a ssessment. Elsewhere, no acute abnormality is seen on limited noncontrast study.
--- NOTE | 2018-12-06 15:12 | EDPHYS ---
Physician Documentation [facility] Name: Paz Ontiveros Age: 43 yrs Sex: Female : 1975 Arrival Date: 12/06/2018 Time: 12:53 Bed 14 Private MD: ED Physician Yoan Briceño HPI: 12/06 14:39 This 43 yrs old Female presents to ER via Ambulatory with complaints of lower snw abd discomfort. 14:39 The patient presents with concerned for STI secondary to x-partner calling and asking snw if she had any STI's, pt states she is having some abdominal cramping but is due to start cycle any day. Onset: The symptoms/episode began/occurred suddenly. Modifying factors: The symptoms are alleviated by nothing, the symptoms are aggravated by nothing. Associated signs and symptoms: The patient has no apparent associated signs or symptoms. 25 yrs ago pt had some genital warts frozen, no outbreaks since per pt. The patient has not recently seen a physician. 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 - Social history:: Smoking status: Patient uses tobacco products, smokes one pack cigarettes per day. - Ebola Screening: : No symptoms or risks identified at this time. ROS: 14:47 Constitutional: Negative for fever, chills, and weight loss, Eyes: Negative for injury, snw pain, redness, and discharge, ENT: Negative for injury, pain, and discharge, Neck: Negative for injury, pain, and swelling, Cardiovascular: Negative for chest pain, palpitations, and edema, Respiratory: Negative for shortness of breath, cough, wheezing, and pleuritic chest pain, Back: Negative for injury and pain, MS/Extremity: Negative for injury and deformity, Skin: Negative for injury, rash, and discoloration, Neuro: Negative for headache, weakness, numbness, tingling, and seizure. 14:47 Abdomen/GI: Positive for abdominal cramps. 14:47 : Negative for urinary symptoms, urinary frequency, small amounts, hematuria, pelvic pain, burning with urination, difficulty urinating, vaginal bleeding, vaginal discharge, vaginal itching, menstrual abnormality. Exam: 14:47 Head/Face: Normocephalic, atraumatic. Eyes: Pupils equal round and reactive to light, snw extra-ocular motions intact. Lids and lashes normal. Conjunctiva and sclera are non-icteric and not injected. Cornea within normal limits. Periorbital areas with no swelling, redness, or edema. ENT: Nares patent. No nasal discharge, no septal abnormalities noted. Tympanic membranes are normal and external auditory canals are clear. Oropharynx with no redness, swelling, or masses, exudates, or evidence of obstruction, uvula midline. Mucous membranes moist. Neck: Trachea midline, no thyromegaly or masses palpated, and no cervical lymphadenopathy. Supple, full range of motion without nuchal rigidity, or vertebral point tenderness. No Meningismus. Chest/axilla: Normal chest wall appearance and motion. Nontender with no deformity. No lesions are appreciated. Cardiovascular: Regular rate and rhythm with a normal S1 and S2. No gallops, murmurs, or rubs. Normal PMI, no JVD. No pulse deficits. Respiratory: Lungs have equal breath sounds bilaterally, clear to auscultation and percussion. No rales, rhonchi or wheezes noted. No increased work of breathing, no retractions or nasal flaring. Abdomen/GI: Soft, non-tender, with normal bowel sounds. No distension or tympany. No guarding or rebound. No evidence of tenderness throughout. Back: No spinal tenderness. No costovertebral tenderness. Full range of motion. Pelvic Exam: Normal external genitalia. Skin: Warm, dry with normal turgor. Normal color with no rashes, no lesions, and no evidence of cellulitis. MS/ Extremity: Pulses equal, no cyanosis. Neurovascular intact. Full, normal range of motion. Neuro: Awake and alert, GCS 15, oriented to person, place, time, and situation. Cranial nerves II-XII grossly intact. Motor strength 5/5 in all extremities. Sensory grossly intact. Cerebellar exam normal. Normal gait. 14:47 Constitutional: The patient appears alert, anxious, restless. 14:47 Psych: Behavior/mood is anxious, Affect is animated, Oriented to person, place, time. Vital Signs: 12:58 BP 103 / 62; Pulse 82; Resp 16; Temp 97.5; Pulse Ox 98% on R/A; Weight 43.09 kg; Height la1 5 ft. 0 in. (152.40 cm); 12:58 Body Mass Index 18.55 (43.09 kg, 152.40 cm) la1 MDM: 13:47 Patient medically screened. snw 15:29 Data reviewed: vital signs, nurses notes. Data interpreted: Pulse oximetry: on room air snw is 98 %. Interpretation: normal. Counseling: I had a detailed discussion with the patient and/or guardian regarding: the historical points, exam findings, and any diagnostic results supporting the discharge/admit diagnosis, lab results, radiology results, the need for outpatient follow up, to return to the emergency department if symptoms worsen or persist or if there are any questions or concerns that arise at home. Response to treatment: the patient's symptoms have markedly improved after treatment. Special discussion: Based on the patient's Hx, exam, and Dx evaluation, there is no indication for emergent surgery or inpatient Tx. It is understood by the patient/guardian that if the Sx's persist or worsen they need to return immediately for re-evaluation. Based on the history and exam findings, there is no indication for further emergent testing or inpatient evaluation. I discussed with the patient/guardian the need to see the OB Gyne specialist for further evaluation of the symptoms. I discussed with the patient/guardian the need to see the primary care provider for further evaluation of the symptoms. 12/06 13:38 Order name: Urine Dipstick--Ancillary (enter results); Complete Time: 14:02 em1 12/06 13:38 Order name: Urine --Ancillary (enter results); Complete Time: 14:02 em1 12/06 14:03 Order name: CT Stone Protocol; Complete Time: 15:07 snw Administered Medications: 15:24 Not Given (Patient Refused): TORadol 30 mg IM once ae4 Disposition: 16:25 Co-signature as Attending Physician, Yoan Briceño MD. rn Disposition: 12/06/18 15:11 Discharged to Home. Impression: Uterine fibroids, abdominal cramping. - Condition is Stable. - Discharge Instructions: Uterine Fibroids. - Prescriptions for Mobic 7.5 mg Oral Tablet - take 1 tablet by ORAL route once daily take with food; 20 tablet. - Medication Reconciliation Form, Thank You Letter, Antibiotic Education, Prescription Opioid Use form. - Follow up: Private Physician; When: 2 - 3 days; Reason: Recheck today's complaints, Continuance of care, Re-evaluation by your physician. Follow up: Emergency Department; When: As needed; Reason: Worsening of condition. Signatures: Dispatcher [employer] EDIL Cecilia Thibodeaux, CHENTE-C OXYGRAPH OPERATOR-Csnw Yoan Briceño MD MD rn AttemaJayson RN RN la1 Ming Jaeger RN RN ae4 Corrections: (The following items were deleted from the chart) 15:54 15:11 12/06/2018 15:11 Discharged to Home. Impression: Uterine fibroids, abdominal ae4 cramping. Condition is Stable. Forms are Medication Reconciliation Form, Thank You Letter, Antibiotic Education, Prescription Opioid Use. Follow up: Private Physician; When: 2 - 3 days; Reason: Recheck today's complaints, Continuance of care, Re-evaluation by your physician. Follow up: Emergency Department; When: As needed; Reason: Worsening of condition. snw
--- NOTE | 2018-12-06 15:12 | ER ---
Nurse's Notes [facility] Name: Paz Ontiveros Age: 43 yrs Sex: Female : 1975 Arrival Date: 12/06/2018 Time: 12:53 Bed 14 [facility] MD: Diagnosis: Uterine fibroids, abdominal cramping Presentation: 12/06 12:57 Presenting complaint: Patient states: Lower abd pain for the last week, denies urinary la1 sx, denies vaginal bleeding or discharge. Transition of care: patient was not received from another setting of care. Onset of symptoms was December 06, 2018. Risk Assessment: Do you want to hurt yourself or someone else? Patient reports no desire to harm self or others. Initial Sepsis Screen: Does the patient meet any 2 criteria? No. Patient's initial sepsis screen is negative. Does the patient have a suspected source of infection? No. Patient's initial sepsis screen is negative. Care prior to arrival: None. 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 - Social history:: Smoking status: Patient uses tobacco products, smokes one pack cigarettes per day. - Ebola Screening: : No symptoms or risks identified at this time. Screenin:02 Abuse screen: Denies threats or abuse. Nutritional screening: No deficits noted. ae4 Tuberculosis screening: No symptoms or risk factors identified. Fall Risk None identified. No fall in past 12 months (0 pts). No secondary diagnosis (0 pts). No IV (0 pts). Ambulatory Aid- None/Bed Rest/Nurse Assist (0 pts). Gait- Normal/Bed Rest/Wheelchair (0 pts) Mental Status- Oriented to own ability (0 pts). Assessment: 13:30 General: Appears distressed, uncomfortable, Behavior is cooperative, anxious, crying, ae4 restless. Pain: Complains of pain in right lower quadrant and left lower quadrant Pain currently is 5 out of 10 on a pain scale. Neuro: Level of Consciousness is awake, alert, obeys commands, Oriented to person, place, time, situation, Appropriate for age. Cardiovascular: Patient's skin is warm and dry. Respiratory: Airway is patent Respiratory effort is even, unlabored, Respiratory pattern is regular, symmetrical. GI: No signs and/or symptoms were reported involving the gastrointestinal system. GI: Patient currently denies diarrhea, vomiting. : No signs and/or symptoms were reported regarding the genitourinary system. : Denies burning with urination, discharge, urgency. EENT: No signs and/or symptoms were reported regarding the EENT system. Derm: Skin is pink, warm \\T\\ dry. Musculoskeletal: No signs and/or symptoms reported regarding the musculoskeletal system. 13:30 Reassessment: Patient is crying and states she does not need to be on the monitor, "I ae4 don't think I need all that." Patient went on to explain she is concerned she may have an STD. Patient states " I don't want a nurse, I want a doctor." Provided patient teaching on Nurse Practioners and scope of practice. Patient verbalized understanding. Patient reports a hx of Bartholin glands cysts and "lots of scarring." Hx and information conveyed to provider. 14:00 Reassessment: Patient appears more relaxed and is no longer crying. Patient states ae4 feeling better. Vital Signs: 12:58 BP 103 / 62; Pulse 82; Resp 16; Temp 97.5; Pulse Ox 98% on R/A; Weight 43.09 kg; Height la1 5 ft. 0 in. (152.40 cm); 12:58 Body Mass Index 18.55 (43.09 kg, 152.40 cm) la1 ED Course: 12:53 Patient arrived in ED. as 12:57 Arm band placed on left wrist. la1 12:58 Triage completed. la1 13:25 Jyothi Wilder RN is Primary Nurse. tw2 13:41 Primary Nurse role handed off by Jyothi Wilder RN ae4 13:41 Ming Jaeger, NUPUR is Primary Nurse. ae4 13:45 Cecilia Thibodeaux FNP-C is PSYCHIATRICP. snw 13:45 Yoan Briceño MD is Attending Physician. snw 14:49 CT Stone Protocol In Process Unspecified. EDMS 15:02 Placed in gown. Bed in low position. Call light in reach. Side rails up X 1. Pulse ox ae4 on. NIBP on. Warm blanket given. 16:55 No provider procedures requiring assistance completed. IV discontinued, intact, ae4 bleeding controlled, No redness/swelling at site. Pressure dressing applied. Administered Medications: 15:24 Not Given (Patient Refused): TORadol 30 mg IM once ae4 Outcome: 15:11 Discharge ordered by MD. curtis 15:54 Patient left the ED. ae4 16:55 Discharged to home ambulatory. ae4 16:55 Condition: stable 16:55 Discharge instructions given to patient, Instructed on discharge instructions, Demonstrated understanding of instructions, Prescriptions given X 1. Signatures: Dispatcher [employer] EDDE Cecilia Thibodeaux, CHENTE-C BUSINESS TRANSFORMATION CONSULTANT-[place]ya Frost Lee, RN RN la1 Jyothi Wilder RN RN tw2 Ming Jaeger RN RN ae4
[2018-12-06 16:50] VITALS: BP 103/62; TEMP 97.5; O2SAT 98
== END 2018-12-06 15:54 | disposition home or self-care (01) ==
LOC: ER 12:51
DX: D25.9 Leiomyoma of uterus, unspecified (principal); Z88.6 Allergy status to analgesic agent; Z88.1 Allergy status to other antibiotic agents; F17.210 Nicotine dependence, cigarettes, uncomplicated
CPT/HCPCS: 74176; 76377; 81003; 81025; 99283

== ENCOUNTER 2021-07-29 00:03 | Emergency (ER) | payer SELFPAY ==
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
[2021-07-29 04:04] VITALS: TEMP 98.2; O2SAT 100
[2021-07-29 04:07] VITALS: BP 100/68
== END 2021-07-29 00:47 | disposition home or self-care (01) ==
LOC: ER 00:03
DX: Z77.098 Contact with and (suspected) exposure to other hazardous, chiefly nonmedicinal, chemicals (principal)
CPT/HCPCS: 99281

== ENCOUNTER 2024-06-22 10:28 | Emergency (ER) | payer SELFPAY ==
[2024-06-22] MEDS ORDERED: NA CHLORIDE 0.9% 1,000 ML ONE (11:10)
[2024-06-22 11:39] LABS: Absolute Eosinophils 0.1 K/uL (0-0.5); Absolute Lymphocytes (CBC) 1.2 K/uL (0.7-4.9); Absolute Neutrophil 3.9 K/uL (1.8-8.0); Eosinophils % 1.3 % (0-4.4); Nucleated Red Blood Cells % 0.1 % (0-0)
[2024-06-22 11:43] LABS: Specific Gravity > 1.030 (1.005-1.030); Urine Bacteria <20 /HPF (<20); Urine Bilirubin 1+ (Negative); Urine Blood 3+ (Negative); Urine Clarity Extremely Turbid (Clear); Urine Color Yellow (Yellow); Urine Culture Reflex Order NOT NEEDED; Urine Glucose NEGATIVE (Negative); Urine Ketones NEGATIVE (Negative); Urine Microscopic Reflex YN ORDER UMIC; Urine Mucus 4+ /HPF (None Seen); Urine Nitrite NEGATIVE (Negative); Urine Protein 1+ (Negative); Urine RBC >50 /HPF (None Seen); Urine Urobilinogen 2+ (Normal); Urine WBC <5 /HPF (<5)
[2024-06-22 11:54] LABS: Absolute Monocytes 1.1 K/uL (0.1-1.3); Basophils % 0.7 % (0-1.3); Hematocrit 40.9 % (36.0-45.0); Hemoglobin 14.7 g/dL (12.0-15.0); Lymphocytes % 19.3 % (15.3-44.8); MCH 33.4 pg (27.0-35.0); MCHC 35.9 g/dL (32.0-36.0); MCV 92.9 fL (80-100); MPV 8.2 fL (7.6-11.3); Monocytes % 16.9 % (3.3-12.3); Neutrophils % 61.8 % (41.7-73.7); Platelets 187 thou/uL (152-406); RBC Red Blood Cell Count 4.41 M/uL (3.86-4.86); Red Cell Distribution Width 12.3 % (12.1-15.2)
[2024-06-22 12:02] LABS: Anion Gap 7.4 mEq/L (5.0-15.0); Potassium 3.4 mEq/L (3.5-5.1); Thyroid Stimulating Hormone 1.08 uIU/mL (0.358-3.740)
[2024-06-22 12:05] LABS: SARS-CoV-2 Antigen CONTROL BLUE LINE VIS/BG OK; SARS-CoV-2 Antigen Rapid Res Negative (Negative)
[2024-06-22 12:16] LABS: Monoscreen NEG (NEG)
--- NOTE | 2024-06-22 12:27 | RAD REPORT ---
EXAM: Chest Pa And Lat (2 Views) HISTORY: 49 years Female subjective fever;Cough COMPARISON: None. FINDINGS: LUNGS/PLEURA: Ill-defined nodular airspace disease in the right upper lobe. MEDIASTINUM: The mediastinal silhouette is within normal limits. CARDIAC: The cardiac silhouette is within normal limits. UPPER ABDOMEN: No significant abnormality. BONES: No acute abnormality. LINES/TUBES/OTHER: N/A IMPRESSION: Right upper lobe airspace disease likely representing pneumonia. Suggest follow-up in 4-6 weeks to en sure improvement and/or resolution.
[2024-06-22 12:38] LABS: Albumin 3.7 g/dL (3.4-5.0); Albumin/Globulin Ratio 0.9 (1.1-1.8); Bilirubin Direct 0.2 mg/dL (0-0.2); Bilirubin Indirect, Calculated 0.4 mg/dL (0.2-0.8); Bilirubin Total 0.6 mg/dL (0.2-1.0); Protein, Total 7.7 g/dL (6.4-8.2)
--- NOTE | 2024-06-22 13:42 | RAD REPORT ---
EXAMINATION: CT ABDOMEN AND PELVIS WITH CONTRAST CLINICAL INDICATION: Female, 49 years old.hematuria, painless hematuria, weight loss TECHNIQUE: CT abdomen and pelvis was performed, after the administration of IV contrast, as per [facility] protocol. Axial, sagittal and coronal reconstructions were obtained. One or more of the following dose reduction techniques were used: Automated exposure control, adjustment of the mA and/o r kV according to patient size, and/or iterative reconstruction. Unless otherwise specified, incidental findings do not require dedicated imaging follow-up. [id number]. COMPARISON: No prior exam. FINDINGS: LOWER CHEST: No acute process identified.No significant pericardial effusion. Mild circumferential th ickening of the distal esophagus which could reflect esophagitis. UPPER GI: No significant abnormality. LIVER: Benign appearing low density liver lesions. No suspicious mass. GALLBLADDER/BILE DUCTS: No biliary ductal dilatation.? PANCREAS: No mass, ductal dilation, or jac-pancreatic fluid. SPLEEN: Unremarkable. ADRENALS: No adrenal masses. KIDNEYS AND URETERS: No hydronephrosis.Low density and/or too small to characterize renal lesions whi ch are statistically benign. ABDOMINAL AORTA AND OTHER VESSELS: Moderate atherosclerotic changes without aortic aneurysm. PERITONEUM: No abnormal free fluid. No free air. LYMPH NODES: No pathologic lymphadenopathy. ABDOMINAL WALL: Unremarkable SMALL BOWEL/COLON: Small bowel has normal course and caliber. No colonic wall thickening or pericolon ic inflammatory changes.Normal appendix. URINARY BLADDER: Underdistended but grossly unremarkable. REPRODUCTIVE ORGANS: Uterus surgically absent. No adnexal abnormality. MUSCULOSKELETAL: Multilevel degenerative changes in the spine. No acute fracture. ADDITIONAL FINDINGS: None. IMPRESSION: No acute or significant abnormalities seen in the abdomen or pelvis. Normal appendix.
--- NOTE | 2024-06-22 13:58 | ER ---
Nurse's Notes [facility] Name: Paz Ontiveros Age: 49 yrs Sex: Female : 1975 Arrival Date: 06/22/2024 Time: 10:28 Bed 7 Private MD: Diagnosis: Pneumonia, unspecified organism Presentation: 06/22 10:56 Chief complaint: Patient states: GENERAL WEAKNESS X 2 DAYS TOOK CARE OF KID WITH FEVER, db FEVER SYMPTOMS X 2 DAYS WITH MUSCLE ACHES. Coronavirus screen: Client denies travel out of the [place] in the last 14 days. At this time, the client does not indicate any symptoms associated with coronavirus-19. Ebola Screen: Patient negative for fever greater than or equal to 101.5 degrees Fahrenheit, and additional compatible Ebola Virus Disease symptoms Patient denies exposure to infectious person. Patient denies travel to an Ebola-affected area in the 21 days before illness onset. No symptoms or risks identified at this time. Initial Sepsis Screen: Does the patient meet any 2 criteria? No. Patient's initial sepsis screen is negative. Does the patient have a suspected source of infection? No. Patient's initial sepsis screen is negative. Risk Assessment: Do you want to hurt yourself or someone else? Patient reports no desire to harm self or others. Onset of symptoms was June 22, 2024. 10:56 Method Of Arrival: Ambulatory db 10:56 Acuity: JAYME 3 db Triage Assessment: 10:59 General: Appears in no apparent distress. comfortable, Behavior is calm, cooperative. db Pain: Denies pain. Neuro: Level of Consciousness is awake, alert, obeys commands, Oriented to person, place, time, situation. Respiratory: Airway is patent Respiratory effort is even, unlabored, Respiratory pattern is regular, symmetrical. RESIDENT INTERN: 10:59 LMP N/A - Hysterectomy, Not db Historical: - Allergies: 10:59 Cipro; db 10:59 Codeine; db 10:59 clomid; db - PMHx: 10:59 Anxiety; insomonia; Panic Attacks; db - PSHx: 10:59 tubal ligation; Tubal reversal; db - Immunization history:: Adult Immunizations unknown. - Infectious Disease History:: Denies. - Social history:: Smoking status: . - Family history:: not pertinent. - Hospitalizations: : No recent hospitalization is reported. Screenin:10 [facility] ED Fall Risk Assessment (Adult) History of falling in the last 3 months, aa5 including since admission No falls in past 3 months (0 pts) Confusion or Disorientation No (0 pts) Intoxicated or Sedated No (0 pts) Impaired Gait No (0 pts) Mobility Assist Device Used No (0 pt) Altered Elimination No (0 pt) Score/Fall Risk Level 0 - 2 = Low Risk Oriented to surroundings, Maintained a safe environment, Educated pt \\T\\ family on fall prevention, incl call for assistance when getting out of bed. Abuse screen: Denies threats or abuse. Nutritional screening: No deficits noted. Tuberculosis screening: No symptoms or risk factors identified. Assessment: 11:10 General: Appears comfortable, Behavior is calm, cooperative, Reports aa5 Fatigue/generalized weakness Pt states "I've been sleeping about 13 hours a night and that is not normal for me" . Pain: Denies pain. Neuro: Level of Consciousness is awake, alert, obeys commands, Oriented to person, place, time, situation. Cardiovascular: Heart tones S1 S2 present Rhythm is regular. Respiratory: Airway is patent Respiratory effort is even, unlabored, Respiratory pattern is regular, symmetrical. GI: No signs and/or symptoms were reported involving the gastrointestinal system. : No signs and/or symptoms were reported regarding the genitourinary system. EENT: No signs and/or symptoms were reported regarding the EENT system. Derm: Skin is pink, warm \\T\\ dry. Musculoskeletal: Range of motion: intact in all extremities. 12:03 Reassessment: Patient is alert, oriented x 3, equal unlabored respirations, skin aa5 warm/dry/pink. Pt provided with warm blankets for comfort. . 13:17 Reassessment: Patient is alert, oriented x 3, equal unlabored respirations, skin aa5 warm/dry/pink. 14:22 Reassessment: Patient is alert, oriented x 3, equal unlabored respirations, skin aa5 warm/dry/pink. Vital Signs: 10:56 BP 116 / 84; Pulse 113; Resp 16; Temp 98.3(O); Pulse Ox 98% ; db 11:01 Weight 39.55 kg (M); Height 5 ft. 0 in. ; db 12:05 BP 90 / 50; Pulse 74; Resp 16 S; Pulse Ox 100% on R/A; aa5 13:17 BP 97 / 58; Pulse 75; Resp 16 S; Pulse Ox 100% on R/A; aa5 14:00 BP 95 / 55; Pulse 74; Resp 16 S; Pulse Ox 100% on R/A; aa5 11:01 Body Mass Index 17.03 (39.55 kg, 152.4 cm) db ED Course: 10:31 Patient arrived in ED. al6 10:32 Yoan Briceño MD is Attending Physician. rn 10:57 Triage completed. db 10:59 Arm band placed on. db 11:08 Freya Wade, RN is Primary Nurse. aa5 11:10 Patient has correct armband on for positive identification. Bed in low position. Call aa5 light in reach. Side rails up X 1. Pulse ox on. NIBP on. 11:32 Story Screen Profile Sent. kb4 11:32 Strep Sent. kb4 11:32 SARS-COV-2 Antigen Rapid Sent. kb4 11:32 T4 Free Sent. kb4 11:32 TSH Sent. kb4 11:33 CBC with Diff Sent. kb4 11:33 Basic Metabolic Panel Sent. kb4 11:33 Urinalysis w/ reflexes Sent. kb4 11:33 Urine collected: clean catch specimen, tea colored, COVID swab sent to lab. Flu and/or kb4 RSV swab sent to lab. Strep swab sent to lab. Initial lab(s) drawn, by dc, sent to lab. Inserted saline lock: 20 gauge in right forearm, using aseptic technique. Blood collected. Flushed with 10 mL NS. 12:09 XRAY Chest Pa And Lat (2 Views) In Process Unspecified. EDMS 13:31 CT Abd/Pelvis - IV Contrast Only In Process Unspecified. EDMS 14:15 No provider procedures requiring assistance completed. IV discontinued, intact, aa5 bleeding controlled, No redness/swelling at site. Pressure dressing applied. Administered Medications: 11:34 Drug: NS 0.9% IV 1000 ml IV at 1000 ml once; to be given as a bolus over 60 minutes aa5 Route: IV; Rate: 1000 ml; Site: right forearm; 12:34 Follow up: IV Status: Completed infusion; IV Intake: 1000ml aa5 14:20 Drug: Amoxicillin-Clavulanate PO 875 mg PO once Route: PO; aa5 14:22 Follow up: Response: No adverse reaction; Medication administered at discharge. aa5 14:20 Drug: AZITHromycin PO 500 mg PO once Route: PO; aa5 14:22 Follow up: Response: No adverse reaction; Medication administered at discharge. aa5 Medication: 11:58 VIS not applicable for this client. aa5 Intake: 12:34 IV: 1000ml; Total: 1000ml. aa5 Outcome: 13:57 Discharge ordered by . rn 14:22 Discharged to home ambulatory, with family, aa5 14:22 Condition: stable 14:22 Discharge instructions given to patient, Instructed on discharge instructions, follow up and referral plans. medication usage, Demonstrated understanding of instructions, follow-up care, medications, Prescriptions given X 2, 14:23 Patient left the ED. aa5 Signatures: Dispatcher [employer] EDMS Yoan Briceño MD MD rn Calderon, Audri RN RN aa5 Krystina Ventura RN RN Macie Kessler al6 Katharine Palma kb4 Corrections: (The following items were deleted from the chart) 10:59 10:56 BP 116 / 84; Pulse 113bpm; Resp 16bpm; Pulse Ox 98%; db db 11:03 11:01 Height 5 ft. 0 in.; db db 11:35 11:33 Inserted saline lock: 20 gauge in right antecubital area, using aseptic kb4 technique. Blood collected. Flushed with 10 mL NS kb4 11:35 11:34 NS 0.9% IV 1000 ml IV at 1000 ml in right antecubital aa5 aa5 11:57 11:10 General: Appears comfortable, Behavior is calm, cooperative, Reports aa5 Fatigue/generalized weakness aa5 11:59 11:58 BP 93 / 61; Pulse 60bpm; Resp 16bpm; Spontaneous; Pulse Ox 94% RA; aa5 aa5
--- NOTE | 2024-06-22 13:58 | EDPHYS ---
Physician Documentation [facility] Name: Paz Ontiveros Age: 49 yrs Sex: Female : 1975 Arrival Date: 06/22/2024 Time: 10:28 Bed 7 Private MD: ED Physician Yoan Briceño HPI: 06/22 11:06 This 49 yrs old Female presents to ER via Ambulatory with complaints of General rn Weakness. 11:06 Patient reports generalized weakness for 2 days, was around a child who is febrile to rn 103 and respiratory symptoms. Patient reports generalized weakness and malaise with muscle aches and fatigue, cough. Patient has subjective fever and chills but no measurable fever with thermometer. No medication changes. No known chronic medical problems. Reports chronic anemia but has never needed a blood transfusion and denies any bleeding at this time.. Onset: The symptoms/episode began/occurred 2 day(s) ago. Severity of symptoms: At their worst the symptoms were moderate in the emergency department the symptoms are unchanged. The patient has not experienced similar symptoms in the past. The patient has not recently seen a physician. 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 - Infectious Disease History:: Denies. - Social history:: Smoking status: . - Family history:: not pertinent. - Hospitalizations: : No recent hospitalization is reported. ROS: 11:06 Constitutional: Positive for subjective fever and chills Neck: Negative for injury, rn pain, and swelling, Cardiovascular: Negative for chest pain, palpitations, and edema, Respiratory: Positive for cough, negative for shortness of breath Abdomen/GI: Negative for abdominal pain, nausea, vomiting, diarrhea, and constipation, Back: Negative for injury and pain, : Reports darker than usual urine MS/Extremity: Negative for injury and deformity, Skin: Negative for injury, rash, and discoloration, Neuro: Positive for generalized weakness and malaise Exam: 11:06 Constitutional: This is a well developed, well nourished patient who is awake, alert, rn and in no acute distress. Ambulatory to triage and bathroom without assistance or difficulty Head/Face: Normocephalic, atraumatic. ENT: Dry mucous membranes Neck: No meningismus or lymphadenopathy noted Cardiovascular: Tachycardic, regular. Respiratory: No increased work of breathing, no retractions or nasal flaring. Abdomen/GI: Soft, non-tender MS/ Extremity: Pulses equal, no cyanosis. Neuro: Awake and alert, GCS 15, equal strength throughout Vital Signs: 10:56 BP 116 / 84; Pulse 113; Resp 16; Temp 98.3(O); Pulse Ox 98% ; db 11:01 Weight 39.55 kg (M); Height 5 ft. 0 in. ; db 12:05 BP 90 / 50; Pulse 74; Resp 16 S; Pulse Ox 100% on R/A; aa5 13:17 BP 97 / 58; Pulse 75; Resp 16 S; Pulse Ox 100% on R/A; aa5 14:00 BP 95 / 55; Pulse 74; Resp 16 S; Pulse Ox 100% on R/A; aa5 11:01 Body Mass Index 17.03 (39.55 kg, 152.4 cm) db MDM: 10:32 Medical Screening Exam initiated rn 13:56 Differential Diagnosis Flu, COVID, dehydration, pneumonia, infectious syndrome, anemia, rn electrolyte disorder, anxiety. Data reviewed: vital signs, nurses notes, lab test result(s), radiologic studies, CT scan, plain films, and as a result, I will discharge patient. Counseling: I had a detailed discussion with the patient and/or guardian regarding the historical points, exam findings, and any diagnostic results supporting the discharge/admit diagnosis, lab results, radiology results, the need for outpatient follow up, to return to the emergency department if symptoms worsen or persist or if there are any questions or concerns that arise at home. Special discussion: I discussed with the patient/guardian in detail that at this point there is no indication for admission to the hospital. It is understood, however, that if the symptoms persist or worsen the patient needs to return immediately for re-evaluation. Based on the history and exam findings, there is no indication for further emergent testing or inpatient evaluation. I discussed with the patient/guardian the need to see the primary care provider for further evaluation of the symptoms. ED course: Chest x-ray shows right upper lobe infiltrate, will treat as pneumonia given cough and subjective fever with chills and recent sick contact. No other acute findings on workup. Did notice blood in urine that patient was not aware of, denies any vaginal bleeding and CT without kidney stones or obstructive uropathy. Will discharge home with return precautions and recommend keeping an eye on any hematuria or urinary symptoms. I have personally reviewed all of the results, including but not limited to blood tests and imaging deemed necessary to safely discharge this patient at this time. All results given to and printed out for patient. I personally went over all the results with the patient and answered all questions. Patient will follow-up with PCP and or specialist as discussed. Return precautions given and understood.. 14:00 ED course: Asked patient about her blood pressure and patient reports her blood rn pressure normally in the 90s systolic, daughter confirms this.. 06/22 11:01 Order name: CBC with Diff; Complete Time: 12:20 06/22 11:01 Order name: Basic Metabolic Panel; Complete Time: 12:20 06/22 11:01 Order name: Urinalysis w/ reflexes; Complete Time: 12:20 06/22 11:01 Order name: TSH; Complete Time: 12:20 06/22 11:01 Order name: T4 Free; Complete Time: 12:20 06/22 11:01 Order name: Flu; Complete Time: 12:20 06/22 11:01 Order name: SARS-COV-2 Antigen Rapid; Complete Time: 12:20 06/22 11:01 Order name: Strep 06/22 11:01 Order name: [place] Screen Profile; Complete Time: 12:20 06/22 12:10 Order name: Throat Culture EDVA 06/22 12:22 Order name: LFT's; Complete Time: 13:19 06/22 11:01 Order name: XRAY Chest Pa And Lat (2 Views); Complete Time: 13:19 06/22 12:21 Order name: CT Abd/Pelvis - IV Contrast Only; Complete Time: 13:48 06/22 11:01 Order name: IV Start; Complete Time: 11:31 rn Administered Medications: 11:34 Drug: NS 0.9% IV 1000 ml IV at 1000 ml once; to be given as a bolus over 60 minutes aa5 Route: IV; Rate: 1000 ml; Site: right forearm; 12:34 Follow up: IV Status: Completed infusion; IV Intake: 1000ml aa5 14:20 Drug: Amoxicillin-Clavulanate PO 875 mg PO once Route: PO; aa5 14:22 Follow up: Response: No adverse reaction; Medication administered at discharge. aa5 14:20 Drug: AZITHromycin PO 500 mg PO once Route: PO; aa5 14:22 Follow up: Response: No adverse reaction; Medication administered at discharge. aa5 Disposition Summary: 06/22/24 13:57 Discharge Ordered Notes: Location: Home rn Problem: new rn Symptoms: have improved rn Condition: Stable rn Diagnosis - Pneumonia, unspecified organism rn Followup: rn - With: Private Physician - When: As needed - Reason: Recheck today's complaints, Re-evaluation by your physician Discharge Instructions: - Discharge Summary Sheet rn - Community-Acquired Pneumonia, Adult rn Forms: - Medication Reconciliation Form rn - Antibiotic pattern grader cutter - Prescription Opioid Use rn - Patient Portal Instructions rn - Leadership Thank You Letter rn Prescriptions: - Augmentin 875-125 mg Oral Tablet - take 1 tablet ORAL route every 12 hours for 10 days; 20 tablet; Refills: 0, rn Product Selection Permitted - Zithromax Z-Jose 250 mg Oral Tablet - take 1 tablet ORAL route as directed for 5 days Day 1 - take two (2) tablets rn one time. Day 2, 3, 4 , 5 take one (1) tablet once daily.; 6 tablet; Refills: 0, Product Selection Permitted Signatures: Dispatcher [employer] EDVA Yoan Briceño MD MD rn Calderon, Audri RN RN aa5 Krystina Ventura RN RN db Corrections: (The following items were deleted from the chart) 11: 11:02 CBC+H.LAB.BRZ ordered. EDMS EDMS 11: 11:02 BASIC METABOLIC PANEL+C.LAB.BRZ ordered. EDMS EDMS 11: 11:02 Urinalysis+U.LAB.BRZ ordered. EDMS EDMS 11: 11:02 THYROID STIMULAT HORMONE+C.LAB.BRZ ordered. EDMS EDMS 11: 11:02 T4 FREE+C.LAB.BRZ ordered. EDMS EDMS 11: 11:02 Influenza Screen (A \T\ B)+BA.LAB.BRZ ordered. EDMS EDMS 11:02 SARS-COV-2 Antigen Rapid+I.LAB.BRZ ordered. EDMS EDMS 11:02 Group A Streptococcus Rapid Sc+BA.LAB.BRZ ordered. EDMS EDMS 11:02 MONO SCREEN PROFILE+I.LAB.BRZ ordered. EDMS EDMS
[2024-06-22] MEDS ORDERED: AMOX/K CLAV 875 MG TAB ONE (14:11)
[2024-06-22] MEDS ORDERED: AZITHROMYCIN 250 MG TAB ONE (14:12)
[2024-06-22 15:40] VITALS: TEMP 98.3
[2024-06-22 15:41] VITALS: O2SAT 100
[2024-06-22 15:42] VITALS: BP 97/58
== END 2024-06-22 14:23 | disposition home or self-care (01) ==
LOC: ER 10:28
DX: J18.9 Pneumonia, unspecified organism (principal); Z11.52 Encounter for screening for COVID-19
CPT/HCPCS: 36415; 71046; 74177; 80048; 80076; 81001; 84439; 84443; 85025; 86308; 87070; 87081; 87804; 87811; 96360; 99284; J7030; Q9967